=== PATIENT | male | born 1960 | race American Indian/Alaskan Native ===

== ENCOUNTER 2017-02-10 21:21 | Emergency (ER) | payer OTHER ==
[2017-02-10 21:44] LABS: Urine Drugs of Abuse Note Disclamer
--- NOTE | 2017-02-10 21:46 | Emergency Department Report ---
HPI - General Time Seen by Provider: 02/10/17 21:35 - HPI HPI: Room 14 The patient is a 56-year-old male presenting with a chief complaint of bizarre behavior. Patient was brought in by police for "talking out of his head." The patient does not answer questions during the interview. The patient is standing naked in the room doing martial arts poses. The patient is covered in his own urine Location: Mental state Duration: Unknown Quality: Bizarre Severity: Moderate Modifying factors: [see above] Context: [see above] Mode of transportation: [not driving] ED Past Medical Hx - Past Medical History Previous Medical History?: No - Surgical History Past Surgical History?: No - Family History Family history: no significant - Social History Smoking Status: Unknown if ever smoked ED Review of Systems ROS: Stated complaint: MH EVAL Other details as noted in HPI Comment: Unobtainable due to pts medical conditions Physical Exam - Physical Exam Physical Exam: GENERAL: The patient is well-developed well-nourished male standing naked in room going through [place] covered in his own urine HEENT: Normocephalic. Atraumatic. Extraocular motions are intact. Patient has moist mucous membranes. NECK: Supple. Trachea midline CHEST/LUNGS: Clear to auscultation. There is no respiratory distress noted. HEART/CARDIOVASCULAR: Regular. There is no tachycardia. There is no gallop rub or murmur. ABDOMEN: Abdomen is soft, nontender. Patient has normal bowel sounds. There is no abdominal distention. SKIN: There is no rash. There is no edema. There is no diaphoresis. NEURO: The patient is awake and alert. The patient is intermittently cooperative. Moves all extremities well. The patient has normal speech and gait. MUSCULOSKELETAL: There is no evidence of acute injury. ED Medical Decision Making - Lab Data Result diagrams: 02/10/17 21:45 02/10/17 21:45 Laboratory Tests 02/10/17 02/10/17 02/10/17 21:30 21:30 21:45 WBC 16.0 H RBC 5.11 H Hgb 14.5 Hct 43.7 MCV 86 MCH 28 MCHC 33 RDW 14.6 Plt Count 273 Lymph % (Auto) 15.4 [place] % (Auto) 7.0 Eos % (Auto) 0.3 Baso % (Auto) 0.3 Lymph # 2.5 [place] # 1.1 H Eos # 0.1 Baso # 0.0 Seg Neutrophils % 77.0 H Seg Neutrophils # 12.3 H Sodium Potassium Chloride Carbon Dioxide Anion Gap BUN Creatinine Estimated GFR BUN/Creatinine Ratio Glucose Calcium Urine Color Yellow Urine Turbidity Clear Urine pH 5.0 Ur Specific [place] 1.020 Urine Protein 30 mg/dl Urine Glucose (UA) Neg Urine Ketones Neg Urine Blood Sm Urine Nitrite Neg Urine Bilirubin Neg Urine Urobilinogen 2.0 Ur Leukocyte Esterase Neg Urine WBC (Auto) 2.0 Urine RBC (Auto) 3.0 U Epithel Cells (Auto) 1.0 Urine Mucus Few Salicylates Urine Opiates Screen Presumptive negative Urine Methadone Screen Presumptive negative Acetaminophen Ur Barbiturates Screen Presumptive positive Ur Phencyclidine Scrn Presumptive negative Ur Amphetamines Screen Presumptive negative U Benzodiazepines Scrn Presumptive negative Urine Cocaine Screen Presumptive negative U Marijuana (THC) Screen Presumptive positive Drugs of Abuse Note Disclamer Plasma/Serum Alcohol 02/10/17 02/10/17 02/10/17 21:45 21:45 21:45 WBC RBC Hgb Hct MCV MCH MCHC RDW Plt Count Lymph % (Auto) [place] % (Auto) Eos % (Auto) Baso % (Auto) Lymph # [place] # Eos # Baso # Seg Neutrophils % Seg Neutrophils # Sodium 141 Potassium 3.3 L Chloride 102.1 Carbon Dioxide 20 L Anion Gap 22 BUN 30 H Creatinine 1.3 Estimated GFR > 60 BUN/Creatinine Ratio 23.07 Glucose 127 H Calcium 9.6 Urine Color Urine Turbidity Urine pH Ur Specific [place] Urine Protein Urine Glucose (UA) Urine Ketones Urine Blood Urine Nitrite Urine Bilirubin Urine Urobilinogen Ur Leukocyte Esterase Urine WBC (Auto) Urine RBC (Auto) U Epithel Cells (Auto) Urine Mucus Salicylates < 0.3 L Urine Opiates Screen Urine Methadone Screen Acetaminophen < 15.0 Ur Barbiturates Screen Ur Phencyclidine Scrn Ur Amphetamines Screen U Benzodiazepines Scrn Urine Cocaine Screen U Marijuana (THC) Screen Drugs of Abuse Note Plasma/Serum Alcohol 02/10/17 21:45 WBC RBC Hgb Hct MCV MCH MCHC RDW Plt Count Lymph % (Auto) [place] % (Auto) Eos % (Auto) Baso % (Auto) Lymph # [place] # Eos # Baso # Seg Neutrophils % Seg Neutrophils # Sodium Potassium Chloride Carbon Dioxide Anion Gap BUN Creatinine Estimated GFR BUN/Creatinine Ratio Glucose Calcium Urine Color Urine Turbidity Urine pH Ur Specific [place] Urine Protein Urine Glucose (UA) Urine Ketones Urine Blood Urine Nitrite Urine Bilirubin Urine Urobilinogen Ur Leukocyte Esterase Urine WBC (Auto) Urine RBC (Auto) U Epithel Cells (Auto) Urine Mucus Salicylates Urine Opiates Screen Urine Methadone Screen Acetaminophen Ur Barbiturates Screen Ur Phencyclidine Scrn Ur Amphetamines Screen U Benzodiazepines Scrn Urine Cocaine Screen U Marijuana (THC) Screen Drugs of Abuse Note Plasma/Serum Alcohol < 0.01 - Differential Diagnosis schizophrenia, bipolar disorder, substance abuse, alcohol intoxication Critical care attestation.: If time is entered above; I have spent that time in minutes in the direct care of this critically ill patient, excluding procedure time. ED Disposition Clinical Impression: Bizarre behavior Disposition: DC/TX PSY HOSP/PSY UNIT Is pt being admited?: No Does the pt Need Aspirin: No Condition: Stable Referrals: PRIMARY CARE, [Primary Care Provider] - 3-5 Days Time of Disposition: 22:26 (awaiting acceptance)
[2017-02-10 21:55] LABS: Bilirubin,Urine NEG (Negative); Blood,Urine SM (Negative); Ketones,Urine NEG (Negative); Leukocyte Esterase,Urine NEG (Negative); Mucus,Urine FEW /HPF; Nitrite,Urine NEG (Negative)
[2017-02-10 21:57] LABS: Basophils % (Auto) 0.3 % (0.0-1.8); Eosinophils % (Auto) 0.3 % (0.0-4.3); Hematocrit 43.7 % (35.5-45.6); Hemoglobin 14.5 gm/dl (11.8-15.2); Mean Corpuscular HGB Conc 33 % (32-34); Mean Corpuscular Hemoglobin 28 pg (28-32); Mean Corpuscular Volume 86 fl (84-94); Platelet Count 273 K/mm3 (140-440); Red Blood Count 5.11 M/mm3 (3.65-5.03); Red Cell Distribution Width 14.6 % (13.2-15.2)
[2017-02-10 22:07] LABS: Anion Gap 22 mmol/L; BUN/Creatinine Ratio 23.07; Blood Urea Nitrogen 30 mg/dL (9-20); Calcium 9.6 mg/dL (8.4-10.2); Carbon Dioxide 20 mmol/L (22-30); Chloride 102.1 mmol/L (98-107); Glucose 127 mg/dL (75-100); Potassium 3.3 mmol/L (3.6-5.0); Sodium 141 mmol/L (137-145)
[2017-02-11] MEDS ORDERED: K-DUR PO ONE ×2 (03:22→03:36)
[2017-02-11] MEDS: BENADRYL IM PRN (12:25)
[2017-02-11] MEDS: HALDOL IM PRN ×2 (12:25→20:15)
[2017-02-11] MEDS: ATIVAN IM PRN ×2 (12:25→20:15)
--- NOTE | 2017-02-11 19:17 | Consultation ---
History of Present Illness - Reason for Consult Consult date: 02/11/17 Reason for consult: Mental Health Evaluation Requesting physician: ANDER ESCOBEDO - Chief Complaint Chief complaint: "Patient uncooperative" - History of Present Psychiatric Illness The patient is a 56-year-old male presenting with a chief complaint of bizarre behavior. Patient was brought in by police for "talking out of his head." Today patient was uncooperative during assessment when asked questions. He was observed earlier today yelling and screaming in the seclusion room. Patient had to be given prn medication for agitation. No gestures of SI/HI's. Medications and Allergies Allergies Allergy/AdvReac Type Severity Reaction Status Date / Time Unable to Assess Allergy Unverified 02/10/17 21:57 Home Medications Medication Instructions Recorded Confirmed Last Taken Type Unobtainable 02/11/17 02/11/17 Unknown History Active Meds: Active Medications Diphenhydramine HCl (Benadryl) 50 mg IM Q6H PRN PRN Reason: Agitation Last Admin: 02/11/17 12:25 Dose: 50 mg Haloperidol Lactate (Haldol) 10 mg IM Q8H PRN PRN Reason: Agitation Last Admin: 02/11/17 12:25 Dose: 10 mg Lorazepam (Ativan) 2 mg IM Q8H PRN PRN Reason: Agitation Last Admin: 02/11/17 12:25 Dose: 2 mg Past psychiatric history - Past Medical History Past Medical History: other (unable to obtain) Past Surgical History: Other (unable to obtain) - Social History Social history: other (unable to obtain) Mental Status Exam - Vital signs Last Vital Signs Temp 98 F 02/11/17 12:42 Pulse 80 02/11/17 12:42 Resp 16 02/11/17 12:42 BP 167/102 02/11/17 12:42 Pulse Ox 100 02/11/17 12:42 - Exam Narrative exam: ROS (+) psychosis MSE: Appearance: uncooperative Behavior: poor eye contact Speech: regular rate and tone Mood: unable to assess Affect: flat Thought Process: tangential Thought Content: no gestures SI/HI's Motor Activity: lying down Cognition: unable to assess Insight: unable to Judgment: unable to assess Results Result Diagrams: 02/10/17 21:45 02/10/17 21:45 Abnormal lab results 02/10/17 02/10/17 02/10/17 Range/Units 21:45 21:45 21:45 WBC 16.0 H (4.5-11.0) K/mm3 RBC 5.11 H (3.65-5.03) M/mm3 [place] # 1.1 H (0.0-0.8) K/mm3 Seg Neutrophils % 77.0 H (40.0-70.0) % Seg Neutrophils # 12.3 H (1.8-7.7) K/mm3 Potassium 3.3 L (3.6-5.0) mmol/L Carbon Dioxide 20 L (22-30) mmol/L BUN 30 H (9-20) mg/dL Glucose 127 H (75-100) mg/dL Salicylates < 0.3 L (2.8-20.0) mg/dL All other labs normal. 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 56-year-old male presenting with a chief complaint of bizarre behavior. Patient was brought in by police for "talking out of his head." Today patient was uncooperative during assessment when asked questions. He was observed earlier today yelling and screaming in the seclusion room. No gestures of SI/HI's. Patient positive for marijuana and barbiturates. Recommendation/Plan: Continue 1013 with inpatient psy services. Start Zyprexa 5 mg PO HS for psychosis and Cogentin 0.5 mg PO HS for EPS Prevention.
[2017-02-11] MEDS ORDERED: COGENTIN PO SCH (22:00)
[2017-02-12] MEDS: ATIVAN IM PRN (05:12)
[2017-02-12] MEDS: BENADRYL IM PRN (05:12)
--- NOTE | 2017-02-12 09:40 | Progress Note ---
Subjective - Reason for Consult Consult date: 02/12/17 Reason for consult: Psychiatry Follow-up - Chief Complaint Chief complaint: "What day is it" 56-year-old male presenting with a chief complaint of bizarre behavior. Patient was brought in by police for "talking out of his head." Today patient is calm and cooperative during assessment. He stated that he got into a argument with his and originally went to [place] to "calm down." He stated that the police took him there, but they didn't have beds so he ended up at [facility]. Patient stated that he was hospitalized at [place] 2 weeks ago for lisette. He states that he have an hx of bipolar. He stated that he has not taken his psy medications in a couple weeks, because he lost them in the [facility] and home after leaving home. He stated that he takes Seroquel. He denies SI/HI's, AVH's, depression symptoms or sleep disturbance. He stated that he smoke marijuana often and drink alcohol seldom. Mental Status Exam - Vital signs Last Vital Signs Temp 98.7 F 02/12/17 08:41 Pulse 99 H 02/12/17 08:41 Resp 20 02/12/17 08:41 BP 119/80 02/12/17 08:41 Pulse Ox 100 02/12/17 08:41 - Exam Narrative exam: MSE: Appearance: calm, cooperative Behavior: good eye contact Speech: regular rate and tone Mood: 'I feel great" Affect: flat Thought Process: circumstantial Thought Content: denies SI/HI's and AVH's Motor Activity: sitting up in bed Cognition: a/ox3 Insight: limited Judgment: limited Assessment and Plan Impression: 56-year-old male presenting with a chief complaint of bizarre behavior. Patient was brought in by police for "talking out of his head." Today patient is calm and cooperative during assessment. He stated that he got into a argument with his and originally went to [place] to "calm down." He stated that the police took him there, but they didn't have any beds so he ended up at [facility]. Positive for marijuana and barbiturates. Recommendation/Plan: Continue 1013 with inpatient psy services. Start Seroquel 200 mg PO HS for mood. Gather collateral to determine proper dispo.
[2017-02-12] MEDS ORDERED: HALDOL IM PRN (09:42)
[2017-02-13 01:19] VITALS: BP 127/80
== END 2017-02-13 01:19 ==
LOC: ED 21:21
DX: R46.2 Strange and inexplicable behavior (principal)
CPT/HCPCS: 36415; 80048; 80307; 81001; 85025; 96372; 99285; G0480; J1200; J1630; J2060; 80320

== ENCOUNTER 2018-11-07 04:05 | Emergency (ER) | payer MEDICARE ==
[2018-11-07 04:34] VITALS: BP 159/100
[2018-11-07] MEDS ORDERED: ULTRAM PO ONE (04:50)
[2018-11-07] MEDS ORDERED: DELTASONE PO ONE (04:50)
[2018-11-07] MEDS ORDERED: IBUPROFEN PO ONE (04:50)
--- NOTE | 2018-11-07 04:56 | Emergency Department Report ---
Upper Extremity - HPI Chief Complaint: Extremity Injury, Upper Stated Complaint: R WRIST PAIN Time Seen by Provider: 11/07/18 04:50 Upper Extremity: Right Wrist Occurred When: 1 Day Severity: severe Symptoms: Yes Pain with Movement, Yes Swelling, No Deformity, No Limited Range of Movement Other History: 58-year-old -Polish male comes in reporting right wrist pain that started this morning about 12 AM. Patient reports that he has a history of gout. Patient denies any recent traumas denies any falls. Patient does admit to having a steak and seafood 2 days ago. Patient states that his dad does not drink any alcohol. Patient comes in by EMS stating that the pain was that severe. ED Review of Systems ROS: Stated complaint: R WRIST PAIN Other details as noted in HPI Comment: All other systems reviewed and negative Musculoskeletal: joint swelling, arthralgia ED Past Medical Hx - Past Medical History Previous Medical History?: Yes Hx Psychiatric Treatment: Yes (bipolar s.) Additional medical history: gout - Surgical History Past Surgical History?: Yes Additional Surgical History: hernia - Social History Smoking Status: Current Every Day Smoker Substance Use Type: Alcohol, Marijuana - Medications Home Medications: Home Medications Medication Instructions Recorded Confirmed Last Taken Type Ibuprofen [Motrin 800 MG tab] 800 mg PO Q8HR PRN #15 tablet 11/07/18 Unknown Rx Prednisone [predniSONE 10 mg 10 mg PO .TAPER #1 tab.ds.pk 11/07/18 Unknown Rx (6-Day Pack, 21 Tabs)] traMADol [Ultram 50 MG tab] 50 mg PO Q6HR PRN #12 tablet 11/07/18 Unknown Rx Upper Extremity Exam - Exam General: Vital signs noted. No distress. Alert and acting appropriately. Shoulder Exam: Yes Normal Range of Motion in Shoulder, No Shoulder Tenderness, No Clavicle Tenderness, No Shoulder Deformity, No AC Joint Tenderness Arm Exam: No Arm/Humerus Tenderness, No Arm Deformity Elbow: No Elbow Tenderness, No Normal Range of Motion in Elbow, No Elbow Deformity Wrist: Yes Wrist Tenderness, Yes Normal ROM in Wrist, No Wrist Deformity, No Snuffbox Tenderness, No Pain with Axial Thumb Compression Hand: Yes Hand Tenderness, Yes Normal ROM in Digit(s), No Hand Deformity, No Digit Tenderness, No Digit(s) Deformity, No Tendon Dysfunction CMS Exam: Yes Normal Distal Pulses, Yes Normal Capillary Refill, Yes Normal Distal Sensation ED Course Vital Signs 11/07/18 04:28 Temperature 97.8 F Pulse Rate 108 H Blood Pressure 159/100 ED Medical Decision Making - Medical Decision Making Patient has been evaluated by this provider in fast track. Patient presents with acute gout attack. Patient's requesting a shot for his pain management. Patient will be given Toradol 30 mg IM and dexamethasone 10 mg IM for pain management. Patient will be discharged home prednisone pack ibuprofen and to follow up with his primary care provider. Critical care attestation.: If time is entered above; I have spent that time in minutes in the direct care of this critically ill patient, excluding procedure time. ED Disposition Clinical Impression: Gout attack Qualifiers: Gout site: wrist Gout etiology: unspecified cause Laterality: right Qualified Code(s): M10.9 - Gout, unspecified Disposition: TO HOME OR SELFCARE Is pt being admited?: No Does the pt Need Aspirin: No Condition: Stable Instructions: Acute Gouty Arthritis (ED) Additional Instructions: Please take medication as prescribed. Please avoid eating steak seafood and alcohol. Please increase her water intake while taking medications. Follow-up with her primary care provider if his symptoms persist or gets worse. Prescriptions: Ibuprofen [Motrin 800 MG tab] 800 mg PO Q8HR PRN #15 tablet PRN Reason: Pain , Severe (7-10) Prednisone [predniSONE 10 mg (6-Day Pack, 21 Tabs)] 10 mg PO .TAPER #1 tab.ds.pk traMADol [Ultram 50 MG tab] 50 mg PO Q6HR PRN #12 tablet PRN Reason: Pain Forms: Work/School Release Form(ED)
[2018-11-07] MEDS ORDERED: DECADRON IM ONE (04:57)
[2018-11-07] MEDS ORDERED: TORADOL IM ONE (04:57)
== END 2018-11-07 05:15 | disposition home or self-care (01) ==
LOC: ED 04:05
DX: M10.9 Gout, unspecified (principal); F31.9 Bipolar disorder, unspecified; F17.200 Nicotine dependence, unspecified, uncomplicated; F12.10 Cannabis abuse, uncomplicated; Z88.8 Allergy status to other drugs, medicaments and biological substances
CPT/HCPCS: 96372; 99282; J1100; J1885

== ENCOUNTER 2018-12-28 10:09 | Emergency (ER) | payer MEDICARE ==
[2018-12-28 10:16] VITALS: BP 120/78
--- NOTE | 2018-12-28 13:03 | Emergency Department Report ---
ED Lower Extremity HPI - General Chief Complaint: Extremity Problem,Nontraumatic Stated Complaint: SWELLING IN LEGS Time Seen by Provider: 12/28/18 11:20 Source: patient Mode of arrival: Ambulatory Limitations: No Limitations - History of Present Illness Initial Comments: This is a 58-year-old male nontoxic, well nourished in appearance, no acute signs of distress presents to the ED with c/o of right knee pain with radiation to right calf and lower leg. Patient denies any injuries. Patient stated has gout and symptoms are similar.Patient denies any numbness, tingling, fever, chills, nausea, vomiting, chest pain, shortness of breath, headache, stiff neck. Patient denies any joint swelling or joint redness. Patient denies decreased range of motion. Patient stated has decreased gait due to pain. Patient denies any allergies. MD Complaint: leg injury Injury: Knee: Right Severity: mild Severity scale (0 -10): 8 Improves With: immobilization Worsens With: weight bearing, movement, palpation Associated Symptoms: swelling, able to partially bear weight, ambulatory. denies: snap/pop sensation, numbness, tingling, unable to bear weight - Related Data Previous Rx's Medication Instructions Recorded Last Taken Type Ibuprofen [Motrin 800 MG tab] 800 mg PO Q8HR PRN #15 tablet 11/07/18 Unknown Rx Prednisone [predniSONE 10 mg 10 mg PO .TAPER #1 tab.ds.pk 11/07/18 Unknown Rx (6-Day Pack, 21 Tabs)] traMADol [Ultram 50 MG tab] 50 mg PO Q6HR PRN #12 tablet 11/07/18 Unknown Rx Ibuprofen [Motrin] 600 mg PO Q8H PRN #20 tablet 12/28/18 Unknown Rx Prednisone [predniSONE 10 mg 10 mg PO .TAPER #1 tab.ds.pk 12/28/18 Unknown Rx (6-Day Pack, 21 Tabs)] Allergies Allergy/AdvReac Type Severity Reaction Status Date / Time No Known Allergies Allergy Unverified 12/28/18 10:11 ED Review of Systems ROS: Stated complaint: SWELLING IN LEGS Other details as noted in HPI Constitutional: denies: chills, fever Eyes: denies: eye pain, eye discharge, vision change ENT: denies: ear pain, throat pain Respiratory: denies: cough, shortness of breath, wheezing Cardiovascular: denies: chest pain, palpitations Endocrine: no symptoms reported Gastrointestinal: denies: abdominal pain, nausea, diarrhea Genitourinary: denies: urgency, dysuria Musculoskeletal: arthralgia. denies: back pain, joint swelling Skin: denies: rash, lesions Neurological: denies: headache, weakness, paresthesias Psychiatric: denies: anxiety, depression Hematological/Lymphatic: denies: easy bleeding, easy bruising ED Past Medical Hx - Past Medical History Hx Hypertension: Yes Hx Psychiatric Treatment: Yes (bipolar s.) Additional medical history: gout - Surgical History Additional Surgical History: hernia - Social History Smoking Status: Current Every Day Smoker Substance Use Type: Alcohol, Marijuana - Medications Home Medications: Home Medications Medication Instructions Recorded Confirmed Last Taken Type Ibuprofen [Motrin 800 MG tab] 800 mg PO Q8HR PRN #15 tablet 11/07/18 Unknown Rx Prednisone [predniSONE 10 mg 10 mg PO .TAPER #1 tab.ds.pk 11/07/18 Unknown Rx (6-Day Pack, 21 Tabs)] traMADol [Ultram 50 MG tab] 50 mg PO Q6HR PRN #12 tablet 11/07/18 Unknown Rx Ibuprofen [Motrin] 600 mg PO Q8H PRN #20 tablet 12/28/18 Unknown Rx Prednisone [predniSONE 10 mg 10 mg PO .TAPER #1 tab.ds.pk 12/28/18 Unknown Rx (6-Day Pack, 21 Tabs)] ED Physical Exam - General Limitations: No Limitations General appearance: alert, in no apparent distress - Head Head exam: Present: atraumatic, normocephalic - Neck Neck exam: Present: normal inspection, full ROM - Extremities Exam Extremities exam: Present: normal inspection, full ROM, tenderness, normal capillary refill. Absent: joint swelling - Expanded Lower Extremity Exam Right Hip exam: Present: normal inspection, full ROM. Absent: tenderness, swelling Upper Leg exam: Present: normal inspection, full ROM. Absent: tenderness, swelling Knee exam: Present: normal inspection, full ROM, tenderness, swelling, full knee extension. Absent: abrasion, laceration, ecchymosis, deformity, crepidus, dislocation, erythema, effusion, pain w/ pronation/supination, posterior draw sign, pain/laxity with valgus, pain/laxity with varus Lower Leg exam: Present: normal inspection, full ROM. Absent: tenderness, swelling, abrasion, laceration, ecchymosis, deformity, crepidus, dislocation, erythema, palpable cord, Sukh's sign Ankle exam: Present: normal inspection, full ROM. Absent: tenderness, swelling Foot/Toe exam: Present: normal inspection, full ROM. Absent: tenderness, swelling Neuro vascular tendon exam: Present: no vascular compromise Gait: Positive: observed and limited by pain - Back Exam Back exam: Present: normal inspection, full ROM - Neurological Exam Neurological exam: Present: alert, oriented X3 - Psychiatric Psychiatric exam: Present: normal affect, normal mood - Skin Skin exam: Present: warm, dry, intact, normal color. Absent: rash ED Course Vital Signs 12/28/18 10:15 Temperature 98.1 F Pulse Rate 92 H Respiratory 18 Rate Blood Pressure 120/78 [Right] O2 Sat by Pulse 96 Oximetry - Reevaluation(s) Reevaluation #1: 12/28/18 13:30 Patient is speaking in full sentences with no signs of distress noted. ED Lower Extremity MDM - Medical Decision Making This is a 58-year-old male that presents with gout flare. Patient is stable and was examined by me. I referred patient to an orthopedic doctor for further evaluation for possible MRI. Doppler US obtained and dictated by the radiologist to r/o DVT. Patient was notified of the results with no questions noted by the patient. Patient does have normal gait with no tenderness and no joint swelling. No ecchymosis. no joint redness or swelling. Not warm to touch. No signs of cellulites present. Patient was instructed to RICE therapy. Patient received Motrin and Decadron for pain. Patient is discharged with Motrin. At time of discharge, the patient does not seem toxic or ill in appearance. No acute signs of distress noted. Patient agrees to discharge treatment plan of care. No further questions noted by the patient. Critical care attestation.: If time is entered above; I have spent that time in minutes in the direct care of this critically ill patient, excluding procedure time. ED Disposition Clinical Impression: Gout flare Qualifiers: Gout site: knee Gout etiology: unspecified cause Laterality: right Qualified Code(s): M10.9 - Gout, unspecified Disposition: TO HOME OR SELFCARE Is pt being admited?: No Does the pt Need Aspirin: No Condition: Stable Instructions: Acute Gouty Arthritis (ED) Additional Instructions: Follow-up with a primary care doctor in 3-5 days or if symptoms worsen and continue return to emergency room as soon as possible. Prescriptions: Ibuprofen [Motrin] 600 mg PO Q8H PRN #20 tablet PRN Reason: Pain Prednisone [predniSONE 10 mg (6-Day Pack, 21 Tabs)] 10 mg PO .TAPER #1 tab.ds.pk Referrals: PRIMARY CARE, [Primary Care Provider] - 3-5 Days APURVA CERRATO MD [Staff Physician] - 3-5 Days [facility] [Outside] - 3-5 Days [facility] [Outside] - 3-5 Days Forms: Work/School Release Form(ED)
--- NOTE | 2018-12-28 13:16 | Vascular Lab Report ---
PROCEDURE: VL VENOUS DUPLEX LE RT TECHNIQUE: Transverse and longitudinal sonograms obtained right lower extremity with malik scale sono graphy. Spectral and color Doppler evaluation. Duplex study. Compression and augmentation performed. HISTORY: right leg pain and swelling COMPARISONS: None FINDINGS: The right common femoral, superficial femoral, popliteal and visualized calf veins demonstrate normal flow with Doppler. No filling defect. Unremarkable compression and augmentation. No evidence of deep venous thrombus. The right great saphenous appears unremarkable. IMPRESSION: No evidence acute deep venous thrombus right lower extremity.. This document is electronically signed by Gasper Graham MD., December 28 2018 01:14:17 PM ET
[2018-12-28] MEDS ORDERED: DECADRON IM ONE (13:22)
[2018-12-28] MEDS ORDERED: IBUPROFEN PO ONE (13:22)
== END 2018-12-28 13:47 | disposition home or self-care (01) ==
LOC: ED 10:09
DX: M10.061 Idiopathic gout, right knee (principal); I10 Essential (primary) hypertension; F17.200 Nicotine dependence, unspecified, uncomplicated; F12.90 Cannabis use, unspecified, uncomplicated
CPT/HCPCS: 93971; 96372; 99283; J1100

== ENCOUNTER 2019-03-10 13:00 | Emergency (ER) | payer MEDICARE ==
[2019-03-10 14:08] VITALS: BP 143/91
[2019-03-10] MEDS ORDERED: DECADRON IM ONE (14:09)
[2019-03-10] MEDS ORDERED: TORADOL IM ONE (14:09)
[2019-03-10] MEDS ORDERED: COLCHICINE PO ONE (14:09)
--- NOTE | 2019-03-10 14:10 | Emergency Department Report ---
ED Extremity Problem HPI - General Chief complaint: Extremity Problem,Nontraumatic Stated complaint: GOUT Time Seen by Provider: 03/10/19 14:05 Source: patient Mode of arrival: Ambulatory Limitations: No Limitations - History of Present Illness Initial comments: 59 male comes in for left great to swelling and pain since Saturday. Admits to drinking ETOH on Saturday. History of GOUT and HTN. Denies any trauma MD Complaint: extremity pain, extremity swelling Onset/Timin -: days(s) Location: left, toe History of Same: Yes -: Yes arthralgia Severity scale (0 -10): 9 Quality: aching, sharp Consistency: constant Worsens with: weight bearing Associated Symptoms: denies other symptoms - Related Data Previous Rx's Medication Instructions Recorded Last Taken Type traMADol [Ultram 50 MG tab] 50 mg PO Q6HR PRN #12 tablet 11/07/18 Unknown Rx Ibuprofen [Motrin] 600 mg PO Q8H PRN #20 tablet 12/28/18 Unknown Rx Prednisone [predniSONE 10 mg 10 mg PO .TAPER #1 tab.ds.pk 12/28/18 Unknown Rx (6-Day Pack, 21 Tabs)] Ibuprofen [Motrin 800 MG tab] 800 mg PO Q8HR PRN #15 tablet 03/10/19 Unknown Rx Prednisone [predniSONE 10 mg 10 mg PO .TAPER #1 tab.ds.pk 03/10/19 Unknown Rx (6-Day Pack, 21 Tabs)] Allergies Allergy/AdvReac Type Severity Reaction Status Date / Time No Known Allergies Allergy Unverified 12/28/18 10:11 ED Review of Systems ROS: Stated complaint: GOUT Other details as noted in HPI Comment: All other systems reviewed and negative ED Past Medical Hx - Past Medical History Hx Hypertension: Yes Hx Psychiatric Treatment: Yes (bipolar s.) Additional medical history: gout - Surgical History Additional Surgical History: hernia - Social History Smoking Status: Current Every Day Smoker Substance Use Type: Alcohol, Marijuana - Medications Home Medications: Home Medications Medication Instructions Recorded Confirmed Last Taken Type traMADol [Ultram 50 MG tab] 50 mg PO Q6HR PRN #12 tablet 11/07/18 Unknown Rx Ibuprofen [Motrin] 600 mg PO Q8H PRN #20 tablet 12/28/18 Unknown Rx Prednisone [predniSONE 10 mg 10 mg PO .TAPER #1 tab.ds.pk 12/28/18 Unknown Rx (6-Day Pack, 21 Tabs)] Ibuprofen [Motrin 800 MG tab] 800 mg PO Q8HR PRN #15 tablet 03/10/19 Unknown Rx Prednisone [predniSONE 10 mg 10 mg PO .TAPER #1 tab.ds.pk 03/10/19 Unknown Rx (6-Day Pack, 21 Tabs)] ED Physical Exam - General Limitations: No Limitations General appearance: alert, in no apparent distress - Head Head exam: Present: atraumatic, normocephalic - Eye Eye exam: Present: normal appearance - Expanded Lower Extremity Exam Left Foot/Toe exam: Present: tenderness, swelling, erythema Neuro vascular tendon exam: Present: no vascular compromise Gait: Positive: observed and limited by pain Critical care attestation.: If time is entered above; I have spent that time in minutes in the direct care of this critically ill patient, excluding procedure time. ED Disposition Clinical Impression: Gout attack Qualifiers: Gout site: toe Disposition: - TO HOME OR SELFCARE Is pt being admited?: No Does the pt Need Aspirin: No Condition: Stable Instructions: Acute Gouty Arthritis (ED) Additional Instructions: take medications as prescribe. Follow up with Primary Care Provider. Prescriptions: Ibuprofen [Motrin 800 MG tab] 800 mg PO Q8HR PRN #15 tablet PRN Reason: Pain , Severe (7-10) Prednisone [predniSONE 10 mg (6-Day Pack, 21 Tabs)] 10 mg PO .TAPER #1 tab.ds.pk Referrals: [facility] LAUR[facility] PAC [Primary Care Provider] - 3-5 Days Forms: Work/School Release Form(ED)
== END 2019-03-10 14:46 | disposition home or self-care (01) ==
LOC: ED 13:00
DX: M10.072 Idiopathic gout, left ankle and foot (principal); I10 Essential (primary) hypertension; F31.9 Bipolar disorder, unspecified; F17.200 Nicotine dependence, unspecified, uncomplicated; F12.90 Cannabis use, unspecified, uncomplicated
CPT/HCPCS: 96372; 99282; J1100; J1885

== ENCOUNTER 2019-04-25 12:37 | Emergency (ER) | payer MEDICARE ==
[2019-04-25 12:58] VITALS: BP 164/103
--- NOTE | 2019-04-25 12:58 | Event Note ---
ED Screening Note Date of service: 04/25/19 Time: 12:57 ED Screening Note: This is a 59 y.o. M. that presents to the ER with left great toe pain. Patient states she ate a steak yesterday and a few hours later started feeling a tingle which progressed to pain in left great toe. Patient think it is a gout flare. Denies injury. This initial assessment/diagnostic orders/clinical plan/treatment(s) is/are subject to change based on patients health status, clinical progression and re-assessment by fellow clinical providers in the ED. Further treatment and workup at subsequent clinical providers discretion. Patient/guardian urged not to elope from the ED as their condition may be serious if not clinically assessed and managed. Initial orders include:
[2019-04-25] MEDS ORDERED: COLCHICINE PO ONE ×2 (13:38)
[2019-04-25] MEDS ORDERED: DECADRON IM ONE (13:38)
--- NOTE | 2019-04-25 13:57 | Emergency Department Report ---
ED Extremity Problem HPI - General Chief complaint: Pain General Stated complaint: GOUT FLARE UP Time Seen by Provider: 04/25/19 12:56 Source: patient Mode of arrival: Ambulatory Limitations: No Limitations - History of Present Illness Initial comments: Patient is a 59-year-old Female with a past medical history of gout who is here for acute exacerbation of gouty arthritis. Patient states that 2 days ago he started having intense pain and swelling of the face of the left great toe. Patient states that walking makes it worse as well as wearing shoes. Patient denies any fevers chills nausea vomiting. Patient states is been no trauma. Severity scale (0 -10): 9 - Related Data Previous Rx's Medication Instructions Recorded Last Taken Type traMADol [Ultram 50 MG tab] 50 mg PO Q6HR PRN #12 tablet 11/07/18 Unknown Rx Ibuprofen [Motrin] 600 mg PO Q8H PRN #20 tablet 12/28/18 Unknown Rx Prednisone [predniSONE 10 mg 10 mg PO .TAPER #1 tab.ds.pk 12/28/18 Unknown Rx (6-Day Pack, 21 Tabs)] Ibuprofen [Motrin 800 MG tab] 800 mg PO Q8HR PRN #15 tablet 03/10/19 Unknown Rx Prednisone [predniSONE 10 mg 10 mg PO .TAPER #1 tab.ds.pk 03/10/19 Unknown Rx (6-Day Pack, 21 Tabs)] HYDROcodone/APAP 5-325 [[place] 1 each PO Q6HR PRN #12 tablet 04/25/19 Unknown Rx 5/325] Ibuprofen [Motrin 800 MG tab] 800 mg PO Q8HR PRN #10 tablet 04/25/19 Unknown Rx Allergies Allergy/AdvReac Type Severity Reaction Status Date / Time No Known Allergies Allergy Verified 04/25/19 12:57 ED Review of Systems ROS: Stated complaint: GOUT FLARE UP Other details as noted in HPI Comment: All other systems reviewed and negative ED Past Medical Hx - Past Medical History Previous Medical History?: Yes Hx Hypertension: Yes Hx Psychiatric Treatment: Yes (bipolar s.) Additional medical history: gout - Surgical History Past Surgical History?: Yes Additional Surgical History: hernia - Social History Smoking Status: Current Every Day Smoker Substance Use Type: Alcohol, Marijuana - Medications Home Medications: Home Medications Medication Instructions Recorded Confirmed Last Taken Type traMADol [Ultram 50 MG tab] 50 mg PO Q6HR PRN #12 tablet 11/07/18 Unknown Rx Ibuprofen [Motrin] 600 mg PO Q8H PRN #20 tablet 12/28/18 Unknown Rx Prednisone [predniSONE 10 mg 10 mg PO .TAPER #1 tab.ds.pk 12/28/18 Unknown Rx (6-Day Pack, 21 Tabs)] Ibuprofen [Motrin 800 MG tab] 800 mg PO Q8HR PRN #15 tablet 03/10/19 Unknown Rx Prednisone [predniSONE 10 mg 10 mg PO .TAPER #1 tab.ds.pk 03/10/19 Unknown Rx (6-Day Pack, 21 Tabs)] HYDROcodone/APAP 5-325 [[place] 1 each PO Q6HR PRN #12 tablet 04/25/19 Unknown Rx 5/325] Ibuprofen [Motrin 800 MG tab] 800 mg PO Q8HR PRN #10 tablet 04/25/19 Unknown Rx ED Physical Exam - General Limitations: No Limitations General appearance: alert, in no apparent distress - Head Head exam: Present: atraumatic, normocephalic - Eye Eye exam: Present: normal appearance - ENT ENT exam: Present: mucous membranes moist - Neck Neck exam: Present: normal inspection - Respiratory Respiratory exam: Present: normal lung sounds bilaterally. Absent: respiratory distress, wheezes, rales, rhonchi - Cardiovascular Cardiovascular Exam: Present: regular rate, normal rhythm. Absent: systolic murmur, diastolic murmur, rubs, gallop - GI/Abdominal GI/Abdominal exam: Present: soft, normal bowel sounds. Absent: distended, tenderness, guarding, rebound - Rectal Rectal exam: Present: deferred - Extremities Exam Extremities exam: Present: normal inspection - Back Exam Back exam: Present: normal inspection - Neurological Exam Neurological exam: Present: alert, oriented X3 - Psychiatric Psychiatric exam: Present: normal affect, normal mood - Skin Skin exam: Present: warm, dry, intact, normal color. Absent: rash ED Course Vital Signs 04/25/19 12:56 Temperature 98.3 F Pulse Rate 94 H Respiratory 16 Rate Blood Pressure 164/103 [Right] O2 Sat by Pulse 98 Oximetry ED Medical Decision Making - Medical Decision Making Patient is a 59-year-old [place] male with a long-standing history of gout who is here for acute exacerbation. Patient given 1.2 mg of colchicine and will follow that with 0.6 mg 1 hour. Patient also given a shot of Decadron which she states is helped in the past. Patient be sent home with pain medications until flareup subsides. Patient discharged home in stable condition. Critical care attestation.: If time is entered above; I have spent that time in minutes in the direct care of this critically ill patient, excluding procedure time. ED Disposition Clinical Impression: Acute gout Qualifiers: Gout site: foot Gout etiology: idiopathic Laterality: left Qualified Code(s): M10.072 - Idiopathic gout, left ankle and foot Disposition: - TO HOME OR SELFCARE Is pt being admited?: No Does the pt Need Aspirin: No Condition: Stable Instructions: Acute Gouty Arthritis (ED) Referrals: [facility] [Primary Care Provider] - 3-5 Days Time of Disposition: 13:56
== END 2019-04-25 14:05 | disposition home or self-care (01) ==
LOC: ED 12:37
DX: M10.9 Gout, unspecified (principal); I10 Essential (primary) hypertension; F31.9 Bipolar disorder, unspecified; F17.200 Nicotine dependence, unspecified, uncomplicated; F12.10 Cannabis abuse, uncomplicated; Z98.890 Other specified postprocedural states; Z79.899 Other long term (current) drug therapy
CPT/HCPCS: 96372; 99282; J1100

== ENCOUNTER 2019-07-24 08:13 | Emergency (ER) | payer MEDICARE ==
[2019-07-24 08:18] VITALS: BP 149/99
--- NOTE | 2019-07-24 08:41 | Emergency Department Report ---
ED ENT HPI - General Chief complaint: Earache Stated complaint: RT EAR LEAKING FLUID Time Seen by Provider: 07/24/19 08:30 Source: patient Mode of arrival: Ambulatory Limitations: No Limitations - History of Present Illness Initial comments: This is a 59-year-old -Indian male who presents to the emergency room with bilateral ear pain since yesterday. Patient states he used a Q-tip daily for 1 week for bilateral ear pruritus. He noticed swelling and leakage to the right ear on yesterday morning. He also reports pain to bilateral ears and worse on the right. Reports muffled hearing on the right. Denies fever, visual changes, tinnitus, vertigo, and headache. MD complaint: ear pain (bilateral) Onset/Timin -: days(s) Location: R ear, L ear Severity: severe Severity scale (0 -10): 9 Quality: aching Consistency: constant Improves with: none Worsens with: none Context- Ear: direct trauma (Qtip) Associated Symptoms: hearing loss (right ear). denies: fever, cough, gum swelling, toothache, pain with swallowing, sore throat, tinnitus, discharge from ear, rhinorrhea - Related Data Previous Rx's Medication Instructions Recorded Last Taken Type traMADol [Ultram 50 MG tab] 50 mg PO Q6HR PRN #12 tablet 11/07/18 Unknown Rx Ibuprofen [Motrin] 600 mg PO Q8H PRN #20 tablet 12/28/18 Unknown Rx Prednisone [predniSONE 10 mg 10 mg PO .TAPER #1 tab.ds.pk 12/28/18 Unknown Rx (6-Day Pack, 21 Tabs)] Ibuprofen [Motrin 800 MG tab] 800 mg PO Q8HR PRN #15 tablet 03/10/19 Unknown Rx Prednisone [predniSONE 10 mg 10 mg PO .TAPER #1 tab.ds.pk 03/10/19 Unknown Rx (6-Day Pack, 21 Tabs)] HYDROcodone/APAP 5-325 [[place] 1 each PO Q6HR PRN #12 tablet 04/25/19 Unknown Rx 5/325] Ibuprofen [Motrin 800 MG tab] 800 mg PO Q8HR PRN #10 tablet 04/25/19 Unknown Rx Ciprofloxacin 0.2%(Nf) 3 drops OU BID 7 Days #1 bottle 07/24/19 Unknown Rx [Ciprofloxacin OTIC] Allergies Allergy/AdvReac Type Severity Reaction Status Date / Time No Known Allergies Allergy Verified 04/25/19 12:57 ED Dental HPI - General Chief complaint: Earache Stated complaint: RT EAR LEAKING FLUID Time Seen by Provider: 07/24/19 08:30 Source: patient Mode of arrival: Ambulatory Limitations: No Limitations - Related Data Previous Rx's Medication Instructions Recorded Last Taken Type traMADol [Ultram 50 MG tab] 50 mg PO Q6HR PRN #12 tablet 11/07/18 Unknown Rx Ibuprofen [Motrin] 600 mg PO Q8H PRN #20 tablet 12/28/18 Unknown Rx Prednisone [predniSONE 10 mg 10 mg PO .TAPER #1 tab.ds.pk 12/28/18 Unknown Rx (6-Day Pack, 21 Tabs)] Ibuprofen [Motrin 800 MG tab] 800 mg PO Q8HR PRN #15 tablet 03/10/19 Unknown Rx Prednisone [predniSONE 10 mg 10 mg PO .TAPER #1 tab.ds.pk 03/10/19 Unknown Rx (6-Day Pack, 21 Tabs)] HYDROcodone/APAP 5-325 [[place] 1 each PO Q6HR PRN #12 tablet 04/25/19 Unknown Rx 5/325] Ibuprofen [Motrin 800 MG tab] 800 mg PO Q8HR PRN #10 tablet 04/25/19 Unknown Rx Ciprofloxacin 0.2%(Nf) 3 drops OU BID 7 Days #1 bottle 07/24/19 Unknown Rx [Ciprofloxacin OTIC] Allergies Allergy/AdvReac Type Severity Reaction Status Date / Time No Known Allergies Allergy Verified 04/25/19 12:57 ED Review of Systems ROS: Stated complaint: RT EAR LEAKING FLUID Other details as noted in HPI Constitutional: denies: chills, fever ENT: ear pain (bilateral ears). denies: throat pain, dental pain, hearing loss, epistaxis, congestion Respiratory: denies: cough, shortness of breath, wheezing Cardiovascular: denies: chest pain, palpitations Gastrointestinal: denies: abdominal pain, nausea, diarrhea Skin: denies: rash, lesions Neurological: denies: headache, weakness, paresthesias Psychiatric: denies: anxiety, depression ED Past Medical Hx - Past Medical History Previous Medical History?: Yes Hx Hypertension: Yes Hx Psychiatric Treatment: Yes (bipolar s.) Additional medical history: gout - Surgical History Past Surgical History?: Yes Additional Surgical History: hernia - Social History Smoking Status: Never Smoker Substance Use Type: None - Medications Home Medications: Home Medications Medication Instructions Recorded Confirmed Last Taken Type traMADol [Ultram 50 MG tab] 50 mg PO Q6HR PRN #12 tablet 11/07/18 Unknown Rx Ibuprofen [Motrin] 600 mg PO Q8H PRN #20 tablet 12/28/18 Unknown Rx Prednisone [predniSONE 10 mg 10 mg PO .TAPER #1 tab.ds.pk 12/28/18 Unknown Rx (6-Day Pack, 21 Tabs)] Ibuprofen [Motrin 800 MG tab] 800 mg PO Q8HR PRN #15 tablet 03/10/19 Unknown Rx Prednisone [predniSONE 10 mg 10 mg PO .TAPER #1 tab.ds.pk 03/10/19 Unknown Rx (6-Day Pack, 21 Tabs)] HYDROcodone/APAP 5-325 [[place] 1 each PO Q6HR PRN #12 tablet 04/25/19 Unknown Rx 5/325] Ibuprofen [Motrin 800 MG tab] 800 mg PO Q8HR PRN #10 tablet 04/25/19 Unknown Rx Ciprofloxacin 0.2%(Nf) 3 drops OU BID 7 Days #1 bottle 07/24/19 Unknown Rx [Ciprofloxacin OTIC] ED Physical Exam - General Limitations: No Limitations General appearance: alert, in no apparent distress, obese (morbidly) - ENT ENT exam: Present: mucous membranes moist. Absent: TM's normal bilaterally (Erythematous left external canal. Large perforated right TM, clear ottorrhea, tragus and pinna tenderness) - Neck Neck exam: Present: normal inspection - Respiratory Respiratory exam: Present: normal lung sounds bilaterally. Absent: respiratory distress - Cardiovascular Cardiovascular Exam: Present: regular rate, normal rhythm. Absent: systolic murmur, diastolic murmur, rubs, gallop - Neurological Exam Neurological exam: Present: alert, oriented X3, normal gait - Psychiatric Psychiatric exam: Present: normal affect, normal mood - Skin Skin exam: Present: warm, dry, intact, normal color. Absent: rash ED Course Vital Signs 07/24/19 08:17 Temperature 99.1 F Pulse Rate 96 H Respiratory 18 Rate Blood Pressure 149/99 O2 Sat by Pulse 90 Oximetry ED Medical Decision Making - Medical Decision Making Patient is stable and was examined by me. Vitals stable. There are signs of a large perforated TM on the right and otitis externa on the left ear. Start ciprofloxacin otic suspension, Tylenol or ibuprofen for pain. Discussed plan with patient and he agreed with plan. Referral to ENT for urgent evaluation. Discharged home in stable condition. Follow up with PCP in 24-72 hours. - Differential Diagnosis otitis media, ear foreign body, auricular hematoma Critical care attestation.: If time is entered above; I have spent that time in minutes in the direct care of this critically ill patient, excluding procedure time. ED Disposition Clinical Impression: Otalgia of both ears, Otorrhea of right ear Tympanic membrane perforation Qualifiers: Laterality: right Qualified Code(s): H72.91 - Unspecified perforation of tympanic membrane, right ear Otitis externa Qualifiers: Otitis externa type: diffuse Chronicity: acute Laterality: left Qualified Code(s): H60.312 - Diffuse otitis externa, left ear Disposition: TO HOME OR SELFCARE Is pt being admited?: No Condition: Stable Instructions: Ruptured Eardrum (ED), Otitis Externa (ED) Additional Instructions: Give Tylenol or ibuprofen for pain every 6-8 hours. Take antibiotics as prescribed to avoid recurrence of the ear infection. Avoid getting water into both ears. Avoid high altitudes, may worsen the pain during ear infection. Follow up with Ear, Nose, and Throat doctor from the referral list below. Prescriptions: Ciprofloxacin 0.2%(Nf) [Ciprofloxacin OTIC] 3 drops OU BID 7 Days #1 bottle Referrals: [facility] [Provider Group] - 3-5 Days [facility] [Provider Group] - 3-5 Days [facility] [Provider Group] - 3-5 Days Forms: Work/School Release Form(ED) Time of Disposition: 08:51
== END 2019-07-24 09:27 | disposition home or self-care (01) ==
LOC: ED 08:13
DX: H60.93 Unspecified otitis externa, bilateral (principal); H72.91 Unspecified perforation of tympanic membrane, right ear; I10 Essential (primary) hypertension; F31.9 Bipolar disorder, unspecified
CPT/HCPCS: 99282

== ENCOUNTER 2020-07-28 07:10 | Emergency (ER) | payer MEDICARE ==
[2020-07-28 07:31] VITALS: BP 135/108
[2020-07-28] MEDS ORDERED: dexAMETHasone 20 MG/5 ML VIAL IM ONE (08:01)
[2020-07-28] MEDS ORDERED: COLCHICINE 0.6 MG CAP PO ONE (08:01)
--- NOTE | 2020-07-28 08:55 | Emergency Department Report ---
ED Lower Extremity HPI - General Chief Complaint: Extremity Injury, Lower Stated Complaint: LEFT GREAT TOE PAIN AND SWELLING Time Seen by Provider: 07/28/20 07:49 Source: patient Mode of arrival: Ambulatory Limitations: No Limitations - History of Present Illness Initial Comments: This is a 60-year-old male nontoxic, well nourished in appearance, no acute signs of distress presents to the ED with c/o of left great toe pain and swelling x several days. Patient stated has history of gout and symptoms are similar to todays. Patient denies any injuries or trauma. Patient denies any numbness, tingling, fever, chills, nausea, vomiting, chest pain, shortness of breath, headache, stiff neck. Patient denies decreased range of motion. Patient stated has decreased gait due to pain. Patient denies any allergies. -: days(s) Injury: Toes: Left Place: home Severity: mild Severity scale (0 -10): 3 Improves With: immobilization Worsens With: palpation Associated Symptoms: swelling, able to partially bear weight. denies: snap/pop sensation, numbness, tingling, unable to bear weight - Related Data Previous Rx's Medication Instructions Recorded Last Taken Type Ibuprofen [Motrin] 600 mg PO Q8H PRN #20 tablet 12/28/18 Unknown Rx Prednisone [predniSONE 10 mg 10 mg PO .TAPER #1 tab.ds.pk 03/10/19 Unknown Rx (6-Day Pack, 21 Tabs)] HYDROcodone/APAP 5-325 [[place] 1 each PO Q6HR PRN #12 tablet 04/25/19 Unknown Rx 5/325] Ibuprofen [Motrin 800 MG tab] 800 mg PO Q8HR PRN #10 tablet 04/25/19 Unknown Rx Ciprofloxacin 0.2%(Nf) 3 drops OU BID 7 Days #1 bottle 07/24/19 Unknown Rx [Ciprofloxacin OTIC] oxyCODONE /ACETAMINOPHEN [Percocet 1 tab PO Q4HR #15 tab 03/14/20 Unknown Rx 5/325] Colchicine 0.6 mg PO ONCE #1 capsule 05/31/20 Unknown Rx Ibuprofen [Motrin 800 MG tab] 800 mg PO Q8HR PRN #30 tablet 05/31/20 Unknown Rx Prednisone [predniSONE 10 mg 10 mg PO .TAPER #1 tab.ds.pk 05/31/20 Unknown Rx (6-Day Pack, 21 Tabs)] traMADoL [Ultram 50 MG tab] 50 mg PO Q6HR PRN #12 tablet 05/31/20 Unknown Rx Colchicine 0.6 mg PO DAILY #3 capsule 07/28/20 Unknown Rx Allergies Allergy/AdvReac Type Severity Reaction Status Date / Time No Known Allergies Allergy Verified 07/28/20 07:26 ED Review of Systems ROS: Stated complaint: LEFT GREAT TOE PAIN AND SWELLING Other details as noted in HPI Comment: All other systems reviewed and negative Constitutional: denies: chills, fever Eyes: denies: eye pain, eye discharge, vision change ENT: denies: ear pain, throat pain Respiratory: denies: cough, shortness of breath, wheezing Cardiovascular: denies: chest pain, palpitations Endocrine: no symptoms reported Gastrointestinal: denies: abdominal pain, nausea, diarrhea Genitourinary: denies: urgency, dysuria Musculoskeletal: denies: back pain, joint swelling, arthralgia Skin: denies: rash, lesions Neurological: denies: headache, weakness, paresthesias Psychiatric: denies: anxiety, depression Hematological/Lymphatic: denies: easy bleeding, easy bruising ED Past Medical Hx - Past Medical History Hx Hypertension: Yes Hx Arthritis: Yes (gout) Hx Psychiatric Treatment: Yes (bipolar s.) Additional medical history: gout - Surgical History Additional Surgical History: hernia - Social History Smoking Status: Current Every Day Smoker Substance Use Type: None - Medications Home Medications: Home Medications Medication Instructions Recorded Confirmed Last Taken Type Ibuprofen [Motrin] 600 mg PO Q8H PRN #20 tablet 12/28/18 Unknown Rx Prednisone [predniSONE 10 mg 10 mg PO .TAPER #1 tab.ds.pk 03/10/19 Unknown Rx (6-Day Pack, 21 Tabs)] HYDROcodone/APAP 5-325 [[place] 1 each PO Q6HR PRN #12 tablet 04/25/19 Unknown Rx 5/325] Ibuprofen [Motrin 800 MG tab] 800 mg PO Q8HR PRN #10 tablet 04/25/19 Unknown Rx Ciprofloxacin 0.2%(Nf) 3 drops OU BID 7 Days #1 bottle 07/24/19 Unknown Rx [Ciprofloxacin OTIC] oxyCODONE /ACETAMINOPHEN [Percocet 1 tab PO Q4HR #15 tab 03/14/20 Unknown Rx 5/325] Colchicine 0.6 mg PO ONCE #1 capsule 05/31/20 Unknown Rx Ibuprofen [Motrin 800 MG tab] 800 mg PO Q8HR PRN #30 tablet 05/31/20 Unknown Rx Prednisone [predniSONE 10 mg 10 mg PO .TAPER #1 tab.ds.pk 05/31/20 Unknown Rx (6-Day Pack, 21 Tabs)] traMADoL [Ultram 50 MG tab] 50 mg PO Q6HR PRN #12 tablet 05/31/20 Unknown Rx Colchicine 0.6 mg PO DAILY #3 capsule 07/28/20 Unknown Rx ED Physical Exam - General Limitations: No Limitations General appearance: alert, in no apparent distress - Head Head exam: Present: atraumatic, normocephalic - Eye Eye exam: Present: normal appearance - Neck Neck exam: Present: normal inspection, full ROM - Respiratory Respiratory exam: Absent: respiratory distress - Cardiovascular Cardiovascular Exam: Present: regular rate - Extremities Exam Extremities exam: Present: normal inspection, full ROM, tenderness, normal capillary refill, joint swelling. Absent: calf tenderness - Expanded Lower Extremity Exam Left Hip exam: Present: normal inspection, full ROM. Absent: tenderness, swelling Upper Leg exam: Present: normal inspection, full ROM. Absent: tenderness, sw elling Knee exam: Present: normal inspection, full ROM. Absent: tenderness, swelling Lower Leg exam: Present: normal inspection, full ROM. Absent: tenderness, swelling, abrasion, laceration, ecchymosis, deformity, crepidus, dislocation, erythema, palpable cord, Sukh's sign Ankle exam: Present: normal inspection, full ROM. Absent: tenderness, swelling, abrasion, laceration, ecchymosis, deformity, crepidus, dislocation, erythema, anterior draw sign Foot/Toe exam: Present: normal inspection, full ROM, tenderness, swelling. Absent: abrasion, laceration, ecchymosis, deformity, crepidus, dislocation, erythema, amputation, puncture wound, foreign body, calcaneal tenderness, tenderness at base of 5th metatarsal, nail avulsion, subungual hematoma Neuro vascular tendon exam: Present: no vascular compromise Gait: Positive: observed and limited by pain 1 - gout flare present - Back Exam Back exam: Present: full ROM - Neurological Exam Neurological exam: Present: alert, oriented X3 - Psychiatric Psychiatric exam: Present: normal affect, normal mood - Skin Skin exam: Present: warm, dry, intact, normal color. Absent: rash ED Course Vital Signs 07/28/20 07:26 Temperature 98 F Pulse Rate 81 Respiratory 20 Rate Blood Pressure 135/108 - Reevaluation(s) Reevaluation #1: 07/28/20 08:53 Patient is speaking in full sentences with no signs of distress noted. ED Lower Extremity MDM - Medical Decision Making 60-year-old male that presents with gout flareup. Patient is stable and was examined by me. Patient does have normal gait with No ecchymosis. No signs or symptoms of septic joint. No signs of cellulites present. Patient received Decadron and colchicine in the ER. Patient is discharged with colchicine. At time of discharge, the patient does not seem toxic or ill in appearance. No acute signs of distress noted. Patient agrees to discharge treatment plan of care. No further questions noted by the patient. Critical care attestation.: If time is entered above; I have spent that time in minutes in the direct care of this critically ill patient, excluding procedure time. ED Disposition Clinical Impression: Gout flare Qualifiers: Gout site: toe Gout etiology: unspecified cause Laterality: left Qualified Code(s): M10.9 - Gout, unspecified Disposition: DC-01 TO HOME OR SELFCARE Is pt being admited?: No Does the pt Need Aspirin: No Condition: Stable Instructions: Low-Purine Eating Plan, Colchicine tablets or capsules Additional Instructions: Follow-up with a primary care doctor in 3-5 days or if symptoms worsen and continue return to emergency room as soon as possible. Prescriptions: Colchicine 0.6 mg PO DAILY #3 capsule Referrals: CHAVA LAUREN MD [Primary Care Provider] - 3-5 Days KASIA MAYA MD [Staff Physician] - 3-5 Days
== END 2020-07-28 10:01 | disposition home or self-care (01) ==
LOC: ED 07:10
DX: M10.9 Gout, unspecified (principal); I10 Essential (primary) hypertension; M19.91 Primary osteoarthritis, unspecified site; F31.9 Bipolar disorder, unspecified; F17.200 Nicotine dependence, unspecified, uncomplicated; Z98.890 Other specified postprocedural states; Z79.1 Long term (current) use of non-steroidal anti-inflammatories (NSAID); Z79.899 Other long term (current) drug therapy
CPT/HCPCS: 96372; 99282; J1100

== ENCOUNTER 2020-11-06 05:40 | Emergency (ER) | payer MEDICARE ==
[2020-11-06 05:55] VITALS: BP 153/94
--- NOTE | 2020-11-06 07:11 | Emergency Department Report ---
ED Extremity Problem HPI - General Chief complaint: Extremity Injury, Lower Stated complaint: GOUT IN LT FOOT Time Seen by Provider: 11/06/20 07:10 Source: patient Mode of arrival: Ambulatory Limitations: No Limitations - History of Present Illness MD Complaint: joint paint -: Gradual (Yesterday) Location: left, toe History of Same: Yes (Patient reports history of gout) -: Yes arthralgia Radiation: none Severity scale (0 -10): 8 Quality: aching, constant Consistency: constant Worsens with: weight bearing, walking, palpation Associated Symptoms: denies other symptoms - Related Data Previous Rx's Medication Instructions Recorded Last Taken Type Acetaminophen/Codeine [Tylenol 1 tab PO Q4HR PRN #12 tablet 11/06/20 Unknown Rx /Codeine # 3 tab] methylPREDNISolone [Medrol 4MG 4 mg PO DAILY #1 tab.ds.pk 11/06/20 Unknown Rx DOSEPAK (21 tabs)] Allergies Allergy/AdvReac Type Severity Reaction Status Date / Time No Known Allergies Allergy Verified 07/28/20 07:26 ED Review of Systems ROS: Stated complaint: GOUT IN LT FOOT Other details as noted in HPI Comment: All other systems reviewed and negative Musculoskeletal: joint swelling, arthralgia ED Past Medical Hx - Past Medical History Previous Medical History?: Yes Hx Hypertension: Yes Hx Arthritis: Yes (gout) Hx Psychiatric Treatment: Yes (bipolar s.) Additional medical history: gout - Surgical History Past Surgical History?: Yes Additional Surgical History: hernia - Social History Smoking Status: Current Every Day Smoker Substance Use Type: Alcohol, Marijuana - Medications Home Medications: Home Medications Medication Instructions Recorded Confirmed Last Taken Type Acetaminophen/Codeine [Tylenol 1 tab PO Q4HR PRN #12 tablet 11/06/20 Unknown Rx /Codeine # 3 tab] methylPREDNISolone [Medrol 4MG 4 mg PO DAILY #1 tab.ds.pk 11/06/20 Unknown Rx DOSEPAK (21 tabs)] ED Physical Exam - General Limitations: No Limitations General appearance: alert, in no apparent distress - Neck Neck exam: Present: normal inspection, full ROM - Respiratory Respiratory exam: Present: normal lung sounds bilaterally. Absent: respiratory distress - Cardiovascular Cardiovascular Exam: Present: regular rate, normal rhythm, normal heart sounds - Extremities Exam Extremities exam: Present: other (Exquisite tenderness to palpation to the left MTP joint of the great toe. Subtle erythema and warmth noted. Mild swelling. no spreading redness. Cap refill normal. Dorsalis pedis pulse normal. ) - Neurological Exam Neurological exam: Present: alert, oriented X3, CN II-XII intact, normal gait - Psychiatric Psychiatric exam: Present: normal affect, normal mood ED Course Vital Signs 11/06/20 05:44 Temperature 99.3 F Pulse Rate 110 H Respiratory 18 Rate Blood Pressure 153/94 O2 Sat by Pulse 97 Oximetry Critical care attestation.: If time is entered above; I have spent that time in minutes in the direct care of this critically ill patient, excluding procedure time. ED Disposition Clinical Impression: Gout attack Disposition: - TO HOME OR SELFCARE Is pt being admited?: No Does the pt Need Aspirin: No Condition: Stable Instructions: Low-Purine Eating Plan Additional Instructions: Take the medications as prescribed. Follow up with your PCP. Return to ED if worse. Prescriptions: methylPREDNISolone [Medrol 4MG DOSEPAK (21 tabs)] 4 mg PO DAILY #1 tab.ds.pk Acetaminophen/Codeine [Tylenol /Codeine # 3 tab] 1 tab PO Q4HR PRN #12 tablet PRN Reason: Pain Referrals: DARRON PARRY [Other] - 3-5 Days Time of Disposition: 07:21
[2020-11-06] MEDS ORDERED: dexAMETHasone 20 MG/5 ML VIAL IM ONE (07:16)
== END 2020-11-06 07:44 | disposition home or self-care (01) ==
LOC: ED 05:40
DX: M10.9 Gout, unspecified (principal); I10 Essential (primary) hypertension; M19.90 Unspecified osteoarthritis, unspecified site; F32.9 Major depressive disorder, single episode, unspecified; F17.200 Nicotine dependence, unspecified, uncomplicated; F12.10 Cannabis abuse, uncomplicated; Z79.899 Other long term (current) drug therapy
CPT/HCPCS: 96372; 99282; J1100

== ENCOUNTER 2021-03-26 07:08 | Emergency (ER) | payer MEDICARE ==
[2021-03-26] MEDS ORDERED: amLODIPine 5 MG TAB PO ONE (07:54)
[2021-03-26] MEDS ORDERED: dexAMETHasone 20 MG/5 ML VIAL IM ONE (07:54)
--- NOTE | 2021-03-26 07:56 | Emergency Department Report ---
HPI - General Chief Complaint: Extremity Injury, Upper Time Seen by Provider: 03/26/21 07:49 - HPI HPI: This is a 61-year-old male who presents to the emergency department with complaint of a 1 day history of atraumatic right wrist swelling in his dominant arm. Patient also presents with a very elevated blood pressure but does have a history of hypertension and admits to not yet taking his amlodipine today. Otherwise the patient did not take anything for his pain prior to presentation. He also has a history of gout. He says that this is similar to previous gout flareups, although it affects different joints sometimes. No recent travel or sick contacts at home. He denies any fever, chest pain, shortness of breath, nausea, vomiting, lower extremity swelling. ED Past Medical Hx - Past Medical History Previous Medical History?: Yes Hx Hypertension: Yes Hx Arthritis: Yes (gout) Hx Psychiatric Treatment: Yes (bipolar s.) Additional medical history: gout - Surgical History Past Surgical History?: Yes Additional Surgical History: umbilical hernia - Social History Smoking Status: Current Every Day Smoker Substance Use Type: Alcohol, Marijuana - Medications Home Medications: Home Medications Medication Instructions Recorded Confirmed Last Taken Type Acetaminophen/Codeine [Tylenol 1 tab PO Q4HR PRN #12 tablet 11/06/20 Unknown Rx /Codeine # 3 tab] methylPREDNISolone [Medrol 4MG 4 mg PO DAILY #1 tab.ds.pk 11/06/20 Unknown Rx DOSEPAK (21 tabs)] Colchicine 1.2 mg PO ONCE #3 tablet 03/26/21 Unknown Rx HYDROcodone/APAP 5-325 [[place] 1 each PO Q6HR PRN #10 tablet 03/26/21 Unknown Rx 5/325] ED Review of Systems ROS: Stated complaint: GOUT PAIN/RT WRIST Other details as noted in HPI Comment: All other systems reviewed and negative Constitutional: denies: chills, fever Eyes: denies: eye pain, vision change ENT: denies: ear pain, throat pain Respiratory: denies: cough, shortness of breath Cardiovascular: denies: chest pain, palpitations Gastrointestinal: denies: abdominal pain, vomiting Genitourinary: denies: urgency, dysuria Musculoskeletal: joint swelling, arthralgia Skin: denies: rash, lesions Neurological: denies: numbness, paresthesias Physical Exam - Physical Exam Vital Signs: Vital Signs 03/26/21 07:21 Temperature 99.6 F Pulse Rate 83 Respiratory 18 Rate Blood Pressure 193/108 O2 Sat by Pulse 99 Oximetry Physical Exam: GENERAL: The patient is well-developed well-nourished. HENT: Normocephalic. Atraumatic. Patient has moist mucous membranes. EYES: Extraocular motions are intact. NECK: Supple. Trachea is midline. CHEST/LUNGS: Clear to auscultation. There is no respiratory distress noted. HEART/CARDIOVASCULAR: Regular. There is no tachycardia. There is no murmur. ABDOMEN: Abdomen is soft, nontender. Patient has normal bowel sounds. SKIN: Skin is warm and dry. Nonpitting swelling to the circumferential right wrist. No erythema. No rash or lesions. There is some warmth but no fluctuance. NEURO: The patient is awake, alert, and oriented. The patient is cooperative. The patient has no focal neurologic deficits. Normal speech. MUSCULOSKELETAL: There is tenderness to palpation to the right wrist worst in the medial and ulnar portions. Radial pulse +2/4 and capillary refill less than 2 seconds to the affected right upper extremity. There is no limitation range of motion. ED Course Vital Signs 03/26/21 07:21 Temperature 99.6 F Pulse Rate 83 Respiratory 18 Rate Blood Pressure 193/108 O2 Sat by Pulse 99 Oximetry ED Medical Decision Making - Lab Data Result diagrams: 03/26/21 08:06 03/26/21 08:06 - Radiology Data Radiology results: report reviewed RIGHT WRIST 3 VIEW(S) INDICATION / CLINICAL INFORMATION: right wrist pain and swelling . Gout flare up. COMPARISON: None available. 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 No acute fracture. Mild degenerative arthrosis of the triscaphe and thumb CMC joint. No osseous erosions. SOFT TISSUES: Moderate soft tissue swelling of the dorsum and ulnar aspect of the wrist. ADDITIONAL FINDINGS: None. IMPRESSION: 1. 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 - Medical Decision Making This patient presents to the emergency department with complaint of right wrist pain and swelling that he feels is consistent with a gout attack. On examination he is neurovascular intact. There is nonpitting swelling of the circumferential right wrist. His pain is more in the middle and ulnar portion of the wrist. This is important as an x-ray was done that shows a chronic sca phoid fracture with malunion and concern for possibly mild avascular necrosis. This was discussed with the patient and he says that he had a fall and broke his wrist years ago. Patient's labs show a leukocytosis of 17,000 that is most likely reactive or demargination. The physical examination does not appear consistent with a cellulitis. Patient has elevated uric acid level. Patient was given a dose of Decadron. He is on allopurinol at home and will be given a prescription for 1-2 doses of colchicine. He was placed in a thumb spica splint due to the incidental x-ray finding and has been instructed to follow-up with an orthopedist. He will return to the emergency department with any worsening of his symptoms or with any acute distress. Critical Care Time: No Critical care attestation.: If time is entered above; I have spent that time in minutes in the direct care of this critically ill patient, excluding procedure time. ED Disposition Clinical Impression: Pain and swelling of right wrist Gout attack Qualifiers: Gout site: wrist Gout etiology: unspecified cause Laterality: right Qualified Code(s): M10.9 - Gout, unspecified Hypertension Qualifiers: Hypertension type: primary hypertension Qualified Code(s): I10 - Essential (primary) hypertension Disposition: - TO HOME OR SELFCARE Is pt being admited?: No Condition: Stable Instructions: Low-Purine Eating Plan, Uric Acid Nephropathy, Wrist Pain, Adult, Hypertension (ED) Additional Instructions: Please follow-up with a primary care physician in the next few days. As we discussed, the x-ray of your wrist showed a chronic right scaphoid bone fracture with concern for possible developing avascular necrosis. I am giving you a referral for 2 different local orthopedist, Dr. Lind and García. Please follow-up regarding the abnormal x-ray finding mentioned above, as well as your new wrist pain and swelling. Take all medications as prescribed. You have been prescribed a medication that is sedating and therefore should not be taken prior to driving, working, and responsible for children and in no way should be mixed with alcohol of any quantity. Return to the emergency department with any worsening of your symptoms, new or concerning symptoms not addressed during this current emergency department visit, or with any acute distress. Prescriptions: Colchicine 1.2 mg PO ONCE #3 tablet HYDROcodone/APAP 5-325 [[place] 5/325] 1 each PO Q6HR PRN #10 tablet PRN Reason: Pain Referrals: KENNEY LIND MD [Staff Physician] - 2-3 Days [facility] [Provider Group] - 2-3 Days Time of Disposition: 09:29
--- NOTE | 2021-03-26 08:23 | XRay Report ---
RIGHT WRIST 3 VIEW(S) INDICATION / CLINICAL INFORMATION: right wrist pain and swelling . Gout flare up. COMPARISON: None available. FINDINGS: BONES / JOINT(S): Chronic, nonunited fracture of the waist of the scaphoid with sclerosis of the prox imal pole. No acute fracture. Mild degenerative arthrosis of the triscaphe and thumb CMC joint. No os seous erosions. SOFT TISSUES: Moderate soft tissue swelling of the dorsum and ulnar aspect of the wrist. ADDITIONAL FINDINGS: None. IMPRESSION: 1. 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 Signer Name: Isaac Jones MD Signed: 03/26/2021 8:19 AM Workstation Name: [id number]
[2021-03-26 08:51] LABS: BUN/Creatinine Ratio 9; Blood Urea Nitrogen 11 mg/dL (9-20); Calcium 9.4 mg/dL (8.4-10.2); Hemolysis Index 18
[2021-03-26 08:54] LABS: Basophils % (Auto) 0.2 % (0.0-1.8); Eosinophils # (Auto) 0.1 K/mm3 (0.0-0.4); Eosinophils % (Auto) 0.4 % (0.0-4.3); Hematocrit 43.7 % (35.5-45.6); Hemoglobin 14.6 gm/dl (11.8-15.2); Lymphocytes # (Auto) 2.3 K/mm3 (1.2-5.4); Lymphocytes % (Auto) 12.8 % (13.4-35.0); Mean Corpuscular HGB Conc 33 % (32-34); Mean Corpuscular Volume 83 fl (84-94); Monocytes # (Auto) 1.4 K/mm3 (0.0-0.8); Monocytes % (Auto) 7.9 % (0.0-7.3); Platelet Count 220 K/mm3 (140-440); Red Blood Count 5.24 M/mm3 (3.65-5.03); Red Cell Distribution Width 14.9 % (13.2-15.2)
[2021-03-26 09:11] VITALS: BP 161/81
== END 2021-03-26 09:52 | disposition home or self-care (01) ==
LOC: ED 07:08
DX: M10.9 Gout, unspecified (principal); M25.531 Pain in right wrist; I10 Essential (primary) hypertension; F17.290 Nicotine dependence, other tobacco product, uncomplicated
CPT/HCPCS: 36415; 73110; 80048; 84550; 85025; 96372; 99284; J1100

== ENCOUNTER 2021-04-13 16:10 | Emergency (ER) | payer MEDICARE ==
--- NOTE | 2021-04-13 16:59 | Emergency Department Report ---
ED General Adult HPI - General Chief complaint: Extremity Injury, Upper Stated complaint: (R)WRIST SWOLLEN / IN PAIN W/GOUT Time Seen by Provider: 04/13/21 16:54 Source: patient Mode of arrival: Ambulatory Limitations: No Limitations - History of Present Illness Initial comments: 61-year-old male patient with history of hypertension and gout presents [facility] complaints of nontraumatic right hand pain and swelling starting yesterday. Patient states current symptoms are consistent with prior gout flareups. He is currently on Allopurinol. His gout has affected his right hand on multiple previous occasions. No current steroid use. Denies paresthesias, numbness, weakness, erythema, bruising. Denies all other complaints at this time. Severity scale (0 -10): 9 - Related Data Previous Rx's Medication Instructions Recorded Last Taken Type Acetaminophen/Codeine [Tylenol 1 tab PO Q4HR PRN #12 tablet 11/06/20 Unknown Rx /Codeine # 3 tab] methylPREDNISolone [Medrol 4MG 4 mg PO DAILY #1 tab.ds.pk 11/06/20 Unknown Rx DOSEPAK (21 tabs)] Colchicine 1.2 mg PO ONCE #3 tablet 03/26/21 Unknown Rx HYDROcodone/APAP 5-325 [[place] 1 each PO Q6HR PRN #10 tablet 03/26/21 Unknown Rx 5/325] Colchicine 0.6 mg PO DAILY #9 tablet 04/13/21 Unknown Rx Indomethacin 50 mg PO TID 5 Days capsule 04/13/21 Unknown Rx Allergies Allergy/AdvReac Type Severity Reaction Status Date / Time No Known Allergies Allergy Verified 04/13/21 16:18 ED Review of Systems ROS: Stated complaint: (R)WRIST SWOLLEN / IN PAIN W/GOUT Other details as noted in HPI Other: GENERAL: Negative for fever. CARDIOVASCULAR: Negative for chest pain. PULMONARY: Negative for shortness of breath. GASTROINTESTINAL: Negative for abdominal pain. MUSCULOSKELETAL: Positive for right hand pain/swelling. NEUROLOGICAL: Negative for headache. INTEGUMENTARY: Negative for rash. ED Past Medical Hx - Past Medical History Hx Hypertension: Yes Hx Arthritis: Yes (gout) Hx Psychiatric Treatment: Yes (bipolar s.) Additional medical history: gout - Surgical History Additional Surgical History: umbilical hernia - Social History Smoking Status: Current Every Day Smoker Substance Use Type: Alcohol, Marijuana - Medications Home Medications: Home Medications Medication Instructions Recorded Confirmed Last Taken Type Acetaminophen/Codeine [Tylenol 1 tab PO Q4HR PRN #12 tablet 11/06/20 Unknown Rx /Codeine # 3 tab] methylPREDNISolone [Medrol 4MG 4 mg PO DAILY #1 tab.ds.pk 11/06/20 Unknown Rx DOSEPAK (21 tabs)] Colchicine 1.2 mg PO ONCE #3 tablet 03/26/21 Unknown Rx HYDROcodone/APAP 5-325 [[place] 1 each PO Q6HR PRN #10 tablet 03/26/21 Unknown Rx 5/325] Colchicine 0.6 mg PO DAILY #9 tablet 04/13/21 Unknown Rx Indomethacin 50 mg PO TID 5 Days capsule 04/13/21 Unknown Rx ED Physical Exam - General Limitations: No Limitations - Other Other exam information: General: Awake, appropriately interactive, no acute distress. Neck: Supple. Full range of motion intact. Cardiovascular: Normal peripheral perfusion. Pulmonary: No respiratory distress. Patient is speaking normally without use of accessory muscles. Skin: No apparent rashes or lesions. Neurological: No facial asymmetry. Speech is clear. Follows commands. Patient is alert and oriented. Musculoskeletal: Tenderness to palpation throughout the dorsal aspect of the right hand with soft tissue swelling. No overlying warmth or erythema. Pain is appropriately proportional to exam findings. There is no fusiform swelling of the digits. There is no tenderness localized to the flexor tendon sheath. No crepitus. Flexion and extension of the wrist is intact. Distal neurovascular and motor/sensory function is intact. Psych: Cooperative. Appropriate mood and affect. ED Course Vital Signs 04/13/21 16:22 Temperature 98 F Pulse Rate 88 Respiratory 18 Rate Blood Pressure 172/102 [Right] O2 Sat by Pulse 98 Oximetry ED Medical Decision Making - Medical Decision Making Differential diagnosis including but limited to: septic arthritis, necrotizing soft tissue infection, infectious tenosynovitis, gout, pseudogout, rheumatoid arthritis Patient with history of gout presents to the emergency department with complaints of nontraumatic painful swelling to his right hand, consistent with prior gout exacerbations. Review of past medical records indicates patient has been evaluated in the emergency department for similar symptoms on multiple prior occasions. During his last ED encounter, imaging was performed and he was referred to orthopedics for further evaluation of possible disruption to the scaphoid bone. Patient states he did follow-up with orthopedics and no further evaluation was needed. Pain is appropriately proportional to exam findings without evidence to suggest concomitant bacterial infection. No clinical indication for further diagnostic work-up on an emergent basis at this time. Patient will be discharged home with appropriate analgesics and instructed to follow-up with primary care provider for close outpatient follow-up. Patient expressed understanding and is agreeable to plan of care. Dietary modifications discussed. Strict return precautions provided. History, exam, diagnostic testing, and current condition do not suggest worrisome pathology to warrant further testing, continued ED treatment, admission, or surgical evaluation at this point. Given the low probability of a significant medical illness, it would be more likely to result in harm than benefit to perform further testing at this stage. Discussed findings, presumptive diagnosis, need for follow-up and specific signs/symptoms that should prompt immediate return to the emergency department. Instructions were explained in detail to the patient in addition to giving written discharge information. Patient expressed understanding and was given the opportunity to ask questions, all of which were satisfactorily answered prior to discharge home. Critical care attestation.: If time is entered above; I have spent that time in minutes in the direct care of this critically ill patient, excluding procedure time. ED Disposition Clinical Impression: Swelling of right hand, History of gout Disposition: DC-01 TO HOME OR SELFCARE Is pt being admited?: No Does the pt Need Aspirin: No Condition: Stable Instructions: Low-Purine Eating Plan Additional Instructions: Take Indomethacin and Colchicine with food as directed. Keep right hand elevated as often as possible to reduce swelling. Apply cool compresses to affected area as needed to reduce swelling. Avoid red meat/shellfish/alcohol, which may worsen your symptoms. Continue Allopurinol as previously prescribed. Follow-up with your primary care provider this week. Call tomorrow to schedule an appointment. Return to the emergency department immediately for new or worsening symptoms. Prescriptions: Colchicine 0.6 mg PO DAILY #9 tablet Indomethacin 50 mg PO TID 5 Days capsule Referrals: [facility] [Provider Group] - 3-5 Days Time of Disposition: 17:02
== END 2021-04-13 17:30 | disposition home or self-care (01) ==
LOC: ED 16:10
CPT/HCPCS: 99282

== ENCOUNTER 2021-08-22 19:27 | Emergency (ER) | payer MEDICARE ==
[2021-08-22] MEDS ORDERED: predniSONE 20 MG TAB PO ONE (20:44)
--- NOTE | 2021-08-22 21:41 | Emergency Department Report ---
ED General Adult HPI - General Chief complaint: Extremity Injury, Lower Stated complaint: gout Time Seen by Provider: 08/22/21 19:53 Source: patient Mode of arrival: Ambulatory Limitations: No Limitations - History of Present Illness Initial comments: Patient presents with nontraumatic right ankle pain. He has gout and states that he is having a gout exacerbation. Again, there was no trauma. Has no fevers or chills per there is no cough or congestion. He states that he is having a sharp and stabbing pain in the right ankle also associate with an aching component. Pain is worse with any kind of weightbearing. Normally when he has a gout attack, he gets prednisone. That is what his request is today. Again, there is no fever. He has no other joint involvement. - Related Data Previous Rx's Medication Instructions Recorded Last Taken Type Acetaminophen/Codeine [Tylenol 1 tab PO Q4HR PRN #12 tablet 11/06/20 Unknown Rx /Codeine # 3 tab] Colchicine 1.2 mg PO ONCE #3 tablet 03/26/21 Unknown Rx HYDROcodone/APAP 5-325 [[place] 1 each PO Q6HR PRN #10 tablet 03/26/21 Unknown Rx 5/325] Colchicine 0.6 mg PO DAILY #9 tablet 04/13/21 Unknown Rx Indomethacin 50 mg PO TID 5 Days capsule 08/22/21 Unknown Rx methylPREDNISolone [Medrol 4MG 4 mg PO DAILY #1 tab.ds.pk 08/22/21 Unknown Rx DOSEPAK (21 tabs)] Allergies Allergy/AdvReac Type Severity Reaction Status Date / Time No Known Allergies Allergy Verified 08/22/21 19:44 ED Review of Systems ROS: Stated complaint: gout Other details as noted in HPI Comment: All other systems reviewed and negative Constitutional: denies: fever Eyes: denies: vision change ENT: denies: throat pain Respiratory: denies: cough Cardiovascular: denies: chest pain Endocrine: denies: unexplained weight loss Gastrointestinal: denies: abdominal pain Genitourinary: denies: dysuria Musculoskeletal: denies: back pain Skin: denies: rash Neurological: denies: headache Hematological/Lymphatic: denies: easy bruising ED Past Medical Hx - Past Medical History Hx Hypertension: Yes Hx Arthritis: Yes (gout) Hx Psychiatric Treatment: Yes (bipolar s.) Additional medical history: gout - Surgical History Additional Surgical History: umbilical hernia - Social History Smoking Status: Current Every Day Smoker Substance Use Type: Alcohol, Marijuana - Medications Home Medications: Home Medications Medication Instructions Recorded Confirmed Last Taken Type Acetaminophen/Codeine [Tylenol 1 tab PO Q4HR PRN #12 tablet 11/06/20 Unknown Rx /Codeine # 3 tab] Colchicine 1.2 mg PO ONCE #3 tablet 03/26/21 Unknown Rx HYDROcodone/APAP 5-325 [[place] 1 each PO Q6HR PRN #10 tablet 03/26/21 Unknown Rx 5/325] Colchicine 0.6 mg PO DAILY #9 tablet 04/13/21 Unknown Rx Indomethacin 50 mg PO TID 5 Days capsule 08/22/21 Unknown Rx methylPREDNISolone [Medrol 4MG 4 mg PO DAILY #1 tab.ds.pk 08/22/21 Unknown Rx DOSEPAK (21 tabs)] ED Physical Exam - General Limitations: No Limitations, Other (Pulse ox noted and normal) General appearance: alert, in no apparent distress - Head Head exam: Present: atraumatic, normocephalic - Eye Eye exam: Present: normal appearance, EOMI - ENT ENT exam: Present: normal exam, normal external ear exam - Neck Neck exam: Present: normal inspection. Absent: meningismus - Respiratory Respiratory exam: Present: normal lung sounds bilaterally. Absent: respiratory distress - Cardiovascular Cardiovascular Exam: Present: normal rhythm, tachycardia - GI/Abdominal GI/Abdominal exam: Present: soft. Absent: tenderness - Extremities Exam Extremities exam: Present: other (There is tenderness with palpation over the right ankle without erythema. This is diffuse in nature. There is no deformity. Pulses are equal and symmetric. There is also tenderness over the right first MTP area with mild warmth and erythema.). Absent: calf tenderness - Back Exam Back exam: Absent: CVA tenderness (R), CVA tenderness (L) - Neurological Exam Neurological exam: Present: alert, oriented X3, CN II-XII intact, abnormal gait (Antalgic), reflexes normal. Absent: motor sensory deficit - Psychiatric Psychiatric exam: Present: normal affect, normal mood - Skin Skin exam: Present: warm, dry ED Course Vital Signs 08/22/21 08/22/21 19:36 22:33 Temperature 102.7 F H 101.0 F H Pulse Rate 105 H 97 H Respiratory 18 18 Rate Blood Pressure 218/212 189/98 [Right] O2 Sat by Pulse 97 97 Oximetry - Reevaluation(s) Reevaluation #1: 08/23/21 01:32 Patient was treated for gout and discharged ED Medical Decision Making - Medical Decision Making Patient presented with ankle pain and right foot pain consistent with gout exacerbation. He did not report any fevers or chills there was suggestive of infection. He did not have trauma to suggest fracture or dislocation. Patient did not have any erythema over the ankle but had some mild erythema and warmth involving the right first MTP consistent with a gout exacerbation. Patient did not have any calf tenderness suggestive of DVT. He certainly did not have any type of petechial or purpuric rash. I had been told that the patient had a temp erature of 100.2. The temperature documented is certainly not that and I did not have the opportunity to address that prior to the patient's discharge. Critical Care Time: No Critical care attestation.: If time is entered above; I have spent that time in minutes in the direct care of this critically ill patient, excluding procedure time. ED Disposition Clinical Impression: Gout Qualifiers: Gout site: ankle Gout etiology: unspecified cause Chronicity: acute Laterality: right Qualified Code(s): M10.9 - Gout, unspecified Disposition: 01 HOME / SELF CARE / HOMELESS Is pt being admited?: No Condition: Stable Instructions: Low-Purine Eating Plan Additional Instructions: Stop taking allopurinol until this attack subsides. Drink plenty water. See your regular doctor for recheck. If you do not have a regular doctor, see the referral doctor. Avoid fatty foods. Prescriptions: Indomethacin 50 mg PO TID 5 Days capsule methylPREDNISolone [Medrol 4MG DOSEPAK (21 tabs)] 4 mg PO DAILY #1 tab.ds.pk Referrals: ROMERO PARRY MD [Other] - 3-5 Days
[2021-08-22 22:34] VITALS: BP 189/98
== END 2021-08-22 22:58 | disposition home or self-care (01) ==
LOC: ED 19:27
DX: M10.9 Gout, unspecified (principal); I10 Essential (primary) hypertension; F17.200 Nicotine dependence, unspecified, uncomplicated
CPT/HCPCS: 99282; J7512

== ENCOUNTER 2021-11-07 21:19 | Emergency (ER) | payer MEDICARE | END 2021-11-08 03:08 | disposition left against medical advice (07) | LOC: ED 21:19 | DX: M10.9 Gout, unspecified (principal); Z53.21 Procedure and treatment not carried out due to patient leaving prior to being seen by health care provider ==